=== PATIENT | male | born 1945 | race Caucasian/White ===

== ENCOUNTER → 2023-05-02 | Outpatient (CLI) | payer MEDICARE, BC ==
[~2023-05-02] MED LIST: ASPI325T6 PO; ASPIRIN 81M81 MG/TA2 PO; CINNAMON500 MG PO; COLACE 100100 MG/CAP PO; FOLIC ACID 40400 MCG PO; GLUCOPHAGE500 MG/TAB PO; GOOD NEIGHBOR500 M6; HCTZ 25MG TAB25 MG PO; IRON325 M1 PO; LOTREL 5/20 CAP1 CAP PO; LOVENOX 4040 MG/0.4 SQ; MOBIC15 MG PO; NORCO 325 MG-7.1 TAB PO; OSTEO-BI-FLEX 21 TAB PO; PRILOSEC 20MG20 MG PO; VALIUM 5MG T5 MG/TAB PO; VITAMIN C500 MG PO; ZOCOR 80MG80 MG PO; ZYRTEC 10MG10 MG PO; [UNRECOGNIZED DRUG - OTHER]
== END ==
LOC: COL.RAD 11:10
DX: M47.22 Other spondylosis with radiculopathy, cervical region (principal); M43.12 Spondylolisthesis, cervical region

== ENCOUNTER → 2023-05-31 | Outpatient (CLI) | payer MEDICARE, BC | LOC: MHCPAIN 10:32 | DX: M48.02 Spinal stenosis, cervical region (principal); M54.81 Occipital neuralgia | CPT/HCPCS: G0463 ==

== ENCOUNTER → 2023-06-29 | Outpatient (CLI) | payer MEDICARE, BC ==
[~2023-06-29] MED LIST changes: +Iohexol 300 - 10 ML VIAL ONE; +Lidocaine PF 2% (20 MG/ML) 2 ML VIAL ONE
== END ==
LOC: MHCPAIN 10:49
DX: M54.12 Radiculopathy, cervical region (principal)
CPT/HCPCS: J1100; Q9967

== ENCOUNTER 2023-10-03 06:54 | Day surgery (SDC) | payer MEDICARE, BC ==
[~2023-10-03] VITALS: Ht 180.3 cm; Wt 94.1 kg
[~2023-10-03 06:54] MED LIST changes: +HYDROmorphone 1 MG/1 ML SYRINGE [PACU/SDC ONLY] IV PRN; -Iohexol 300 - 10 ML VIAL ONE; +LR 1,000 ML IV SCH; -Lidocaine PF 2% (20 MG/ML) 2 ML VIAL ONE; +Meclizine 25 MG TAB PO SCH; +Meperidine 50 MG/ML 1 ML VIAL IV PRN; +Ondansetron 4 MG/2 ML VIAL IV PRN; +droPERidol 2.5 MG/ML 2 ML VIAL IV PRN; +fentaNYL 50 MCG/ML 1 ML SYRINGE/VIAL [PACU/SDC ONLY] IV PRN; +hydrALAZINE 20 MG/ML 1 ML VIAL IV PRN
[2023-10-03 07:57] VITALS: BP 137/87; PULSE 60; TEMP 97.6
[2023-10-03] MEDS ORDERED: Rocuronium 50 MG/5 ML Multi-Dose VIAL ONE (08:02)
[2023-10-03] MEDS ORDERED: fentaNYL 50 MCG/ML 2 ML VIAL ONE (08:02)
[2023-10-03] MEDS ORDERED: dexAMETHasone 10 MG/ML VIAL ONE (08:03)
[2023-10-03] MEDS ORDERED: Ondansetron 4 MG/2 ML VIAL ONE (08:03)
[2023-10-03] MEDS ORDERED: NS 10 ML IV ONE (08:03)
[2023-10-03] MEDS ORDERED: MASON NATURAL500 MG PO (08:14)
[2023-10-03] MEDS ORDERED: NEURONTIN300 MG/CAP PO (08:17)
[2023-10-03] MEDS ORDERED: REMERON 15M15 MG/TA1 PO (08:18)
[2023-10-03] MEDS ORDERED: ZOCOR 40MG40 MG PO (08:23)
[2023-10-03] MEDS ORDERED: MYSOLINE 5050 MG/TAB PO (08:24)
[2023-10-03] MEDS ORDERED: VITAMIN D31000 I1 PO (08:24)
[2023-10-03] MEDS ORDERED: STOOL SOFTENER100 M2 PO (08:25)
[2023-10-03] MEDS ORDERED: MELATONIN1 MG PO (08:25)
[2023-10-03] MEDS ORDERED: EYE MULTIVITAM1 EAC1 PO (08:26)
[2023-10-03] MEDS ORDERED: NORCO 325 MG-51 TAB (08:31)
[2023-10-03] MEDS ORDERED: Iohexol 350 - 100 ML VIAL BILE DUCT ONE (09:02)
[2023-10-03] MEDS ORDERED: ePHEDrine 50 MG/ML VIAL ONE (09:10)
[2023-10-03] MEDS ORDERED: hydrALAZINE 20 MG/ML 1 ML VIAL ONE (09:42)
[2023-10-03] MEDS ORDERED: Morphine 4 MG/ML VIAL IV PRN (10:15)
[2023-10-03] MEDS ORDERED: NORCO 325 MG-51 TAB PO (10:15)
[2023-10-03] MEDS ORDERED: Ondansetron 4 MG/2 ML VIAL IV PRN (10:15)
[2023-10-03 11:50] VITALS: BP 146/66; PULSE 56; TEMP 97.5
[2023-10-03 12:05] VITALS: BP 153/64; PULSE 60
[2023-10-03 12:20] VITALS: BP 133/62; PULSE 68
[2023-10-03 12:35] VITALS: BP 123/64; PULSE 72
--- NOTE | 2023-10-03 12:45 | NUR ---
1150 RETURNS TO ROOM 7 PER CART WITH HOB ELEVATED 40 DEGREES. AWAKE, ALERT. RESP UNLABORED. VITAL SIGNS OBTAINED. ABD ROUND, SOFT WITH BANDAID IN PLACE TO 3 INCISION SITES. NO REDNESS OR DRAINAGE OBSERVED. IN ROOM 1152 O2 PER NC REMOVED. PATIENT REPOSITIONS ON CART WITH ASSIST. REPORTS RIGHT NECK SHOULDER DISCOMFORT. DESCRIBES BEING "THE SAME" PREOP. ALTERNATING ICE AND HEAT TO AREEA. DENIES NEED FOR PAIN MED. DENIES CHEST PAIN OR DYSPNEA. CALL LIGHT AT SIDE. 1205 HOB ELEVATED 50 DEGREES. AWAKE, ALERT, CONVERSES WITH 1215 HOB ELEVATED 80 DEGREES. TOLERATES PO WATER AND ICE CREAM WITHOUT NAUSEA. 1225 DISCHARGE INSTRUCTIONS REVIEWED. PATIENT AND VERBALIZE UNDERSTANDING. COPY PROVIDED IN DISCHARGE FOLDER [address] MCGRATH 1235 SITS ON EDGE OF CART. MOVES WELL, INDEPENDENTLY. DRESSES WITH MINIMAL ASSIST FROM
== END 2023-10-03 12:45 | disposition home or self-care (01) ==
LOC: SDCO 06:54
DX: K80.10 Calculus of gallbladder with chronic cholecystitis without obstruction (principal); I44.1 Atrioventricular block, second degree; I45.10 Unspecified right bundle-branch block; I08.1 Rheumatic disorders of both mitral and tricuspid valves; I11.9 Hypertensive heart disease without heart failure; E11.42 Type 2 diabetes mellitus with diabetic polyneuropathy; K21.9 Gastro-esophageal reflux disease without esophagitis; C44.300 Unspecified malignant neoplasm of skin of unspecified part of face
CPT/HCPCS: J0360; J0690; J1100; J1170; J1790; J2405; J2704; J3010; J7120; Q9967

== ENCOUNTER 2023-11-29 11:17 | Inpatient (IN) | payer MEDICARE, BC ==
[2023-11-29] VITALS (10 sets, daily range): BP systolic 129–171; BP diastolic 86–100; PULSE 65–76; TEMP 97.5–98
[~2023-11-29] VITALS: Ht 180.3 cm; Wt 92.7 kg
[~2023-11-29 11:17] MED LIST changes: +EYE MULTIVITAM1 EAC1 PO; -HYDROmorphone 1 MG/1 ML SYRINGE [PACU/SDC ONLY] IV PRN; -LR 1,000 ML IV SCH; +MASON NATURAL500 MG PO; +MELATONIN1 MG PO; +MYSOLINE 5050 MG/TAB PO; -Meclizine 25 MG TAB PO SCH; -Meperidine 50 MG/ML 1 ML VIAL IV PRN; +NEURONTIN300 MG/CAP PO; +NORCO 325 MG-51 TAB; +NORCO 325 MG-51 TAB PO; -Ondansetron 4 MG/2 ML VIAL IV PRN; +REMERON 15M15 MG/TA1 PO; +STOOL SOFTENER100 M2 PO; +VITAMIN D31000 I1 PO; +ZOCOR 40MG40 MG PO; -droPERidol 2.5 MG/ML 2 ML VIAL IV PRN; -fentaNYL 50 MCG/ML 1 ML SYRINGE/VIAL [PACU/SDC ONLY] IV PRN; -hydrALAZINE 20 MG/ML 1 ML VIAL IV PRN
[2023-11-29] MEDS ORDERED: NS 1,000 ML IV ONE (11:45)
[2023-11-29 11:58] LABS: PROTHROMBIN TIME 11.4 SECONDS (9.7-12.8)
[2023-11-29 12:05] LABS: BASO % 0.2 % (0.0-2.0); EOS # 0.1 K/mm3 (0.0-0.7); EOS % 1.2 % (0.0-4.0); GRAN # 5.5 K/mm3 (1.4-6.5); GRAN % 59.4 % (42.2-75.2); LYMPH # 2.6 K/mm3 (1.2-3.4); LYMPH % 28.6 % (20.0-51.0); MEAN CELL VOLUME 92 fl (80.0-100.0); MEAN CORPUSCULAR HGB CONC 35 g/dl (33.0-37.0); MEAN PLATELET VOLUME 9.2 fl (7.4-10.4); MONO % 10.4 % (1.7-9.3); PLATELET COUNT 268 K/mm3 (130-400); RED BLOOD COUNT 5.84 M/mm3 (4.20-5.60); REDCELL DISTRIBUTION WIDTH-CV 12.4 % (11.5-14.5)
[2023-11-29 12:06] LABS: HEMATOCRIT 53.9 % (42.0-52.0); HEMOGLOBIN 18.7 g/dl (13.5-18.0); MEAN CORPUSCULAR HEMOGLOBIN 32 pg (27-31)
[2023-11-29 12:17] LABS: ALBUMIN 4.6 g/dL (3.4-4.8); BILIRUBIN,TOTAL 1.3 mg/dL (0.2-1.2); C-REACTIVE PROTEIN 0.1 mg/dL (0.00-0.50); CALCIUM 10.5 mg/dL (8.4-10.2); CREATININE, serum 0.92 mg/dL (0.72-1.25); POTASSIUM 3.7 mEq/L (3.5-4.5); TOTAL PROTEIN 7.9 g/dl (6.2-8.1)
[2023-11-29] MEDS ORDERED: NERVE RENEW PO (12:25)
[2023-11-29 12:27] LABS: TROPONIN-I 0.011 ng/mL (0.00-0.033)
[2023-11-29] MEDS ORDERED: Docusate Sodium 100 MG CAP PO PRN (14:00)
[2023-11-29] MEDS ORDERED: LR 1,000 ML IV SCH (14:00)
[2023-11-29] MEDS ORDERED: Acetaminophen 325 MG TAB PO PRN (14:00)
[2023-11-29] MEDS ORDERED: Gabapentin 300 MG CAP PO SCH ×2 (14:00→21:00)
[2023-11-29] MEDS ORDERED: Polyethylene Glycol 3350 17 GM PDS PO PRN (14:00)
[2023-11-29] MEDS ORDERED: Ondansetron 4 MG/2 ML VIAL IV PRN (14:00)
[2023-11-29] MEDS ORDERED: ceFAZolin 2 G in Water For Injection,Sterile 20 ML IV SCH (14:15)
[2023-11-29] MEDS ORDERED: NEURONTIN300 MG/CAP PO (14:29)
[2023-11-29] MEDS ORDERED: NS 1,000 ML IV.SOLN. IR SCH (16:20)
[2023-11-29] MEDS ORDERED: Iohexol 350 - 100 ML VIAL IV ONE (16:22)
[2023-11-29] MEDS ORDERED: fentaNYL 50 MCG/ML 2 ML VIAL IV SCH (16:33)
[2023-11-29] MEDS ORDERED: Midazolam 2 MG/2 ML VIAL IV SCH (16:40)
--- NOTE | 2023-11-29 18:14 | NUR ---
Patient resting in bed, getting his dinner. Denies any pain or discomfort. VSS. Report will be given to night RN.
[2023-11-29] MEDS ORDERED: Primidone 50 MG TAB PO SCH (21:00)
[2023-11-29] MEDS ORDERED: Cephalexin 500 MG CAP PO SCH (21:00)
[2023-11-29] MEDS ORDERED: Atorvastatin 20 MG TAB PO SCH (21:00)
[2023-11-29] MEDS ORDERED: Mirtazapine 15 MG TAB PO SCH (21:00)
[2023-11-29] MEDS ORDERED: Famotidine 20 MG TAB PO SCH (21:00)
--- NOTE | 2023-11-29 22:47 | NUR ---
PATIENT RESTING IN BED WITH EYES CLOSED. EASILY ROUSED. ALERT AND ORIENTED X 4. REPORTS PAIN IN LEFT CHEST INCISION SITE AT 4/10. DENIES ANY NAUSEA OR SHORTNESS OF BREATH. CALL LIGHT WITHIN REACH. BED IS LOCKED AND IN LOW POSITION.
[2023-11-30 03:27] VITALS: BP 150/88; PULSE 64; TEMP 97.7
[2023-11-30 04:07] VITALS: BP_SYST 150
[2023-11-30 06:58] LABS: BASO % 0.3 % (0.0-2.0); EOS # 0.1 K/mm3 (0.0-0.7); EOS % 2.1 % (0.0-4.0); GRAN # 4.2 K/mm3 (1.4-6.5); GRAN % 61.1 % (42.2-75.2); HEMATOCRIT 43.7 % (42.0-52.0); LYMPH # 1.7 K/mm3 (1.2-3.4); LYMPH % 25.5 % (20.0-51.0); MEAN CELL VOLUME 91 fl (80.0-100.0); MEAN CORPUSCULAR HEMOGLOBIN 32 pg (27-31); MEAN CORPUSCULAR HGB CONC 35 g/dl (33.0-37.0); MEAN PLATELET VOLUME 9.4 fl (7.4-10.4); MONO # 0.7 K/mm3 (0.1-0.6); MONO % 10.7 % (1.7-9.3); PLATELET COUNT 216 K/mm3 (130-400); RED BLOOD COUNT 4.82 M/mm3 (4.20-5.60); REDCELL DISTRIBUTION WIDTH-CV 12.1 % (11.5-14.5)
[2023-11-30 07:18] LABS: HEMOGLOBIN 15.3 g/dl (13.5-18.0)
[2023-11-30 07:21] LABS: CALCIUM 9.3 mg/dL (8.4-10.2); CREATININE, serum 0.74 mg/dL (0.72-1.25); POTASSIUM 3.8 mEq/L (3.5-4.5)
[2023-11-30 07:49] VITALS: BP 143/82; PULSE 63; TEMP 97.6
[2023-11-30 08:45] VITALS: BP_SYST 143
[2023-11-30] MEDS ORDERED: Gabapentin 300 MG CAP PO SCH (09:00)
[2023-11-30] MEDS ORDERED: Influenza Virus Vaccine, Hi-Dose Triv '24-25 (65 YR+) 0.5 ML SYRINGE IM SCH (09:00)
--- NOTE | 2023-11-30 10:16 | NUR ---
Patient awake, alert and oriented. Denies shortness of breath or nausea, states he has a little pain and tenderness at his incision site - tylenol given. Steady on feet in room. Bed in lowest position with call light within reach.
[2023-11-30] MEDS ORDERED: CEPHALEXIN500 M1 PO (10:36)
--- NOTE | 2023-11-30 10:43 | NUR ---
ticket worker met with pt to discuss discharge planning. He reports that he is going home today. Pt lives with , Cristy [phone] in [place]. He sees Dr. Angelo for PCP needs and obtains medications from [facility] with no difficulties. He has Medicare A/B and BCBS insurance. Pt is independent with [employer] and uses no DME, but has a cane for at night when he is not fully awake. He reports to have a DPOA-HC listing his and daughter, Viktoria at [facility]. No further needs and worked with PT and states it went well. PT/OT pending Discharge Plan: home
[2023-11-30 11:35] VITALS: BP 145/78; PULSE 68; TEMP 98
--- NOTE | 2023-11-30 11:43 | NUR ---
D: Train Dispatcher stopped by room on rounds. A: Pt was resting and content. Pt has no needs right now. P: Train Dispatcher informed pt that if he needed anything from the legal administrative assistant area to let his nurse know. Train Dispatcher will follow up as needed.
== END 2023-11-30 12:45 | disposition home or self-care (01) | DRG 244 ==
LOC: COL.ER 11:17 → MEDICAL 13:46
PROVIDERS: Emergency Medicine; ADMIT Internal Medicine
PROC: 02H63JZ Insertion of Pacemaker Lead into Right Atrium, Percutaneous Approach (ICD-10-PCS; principal; 2023-11-29)
PROC: 02HK3JZ Insertion of Pacemaker Lead into Right Ventricle, Percutaneous Approach (ICD-10-PCS; 2023-11-29)
PROC: 0JH606Z Insertion of Pacemaker, Dual Chamber into Chest Subcutaneous Tissue and Fascia, Open Approach (ICD-10-PCS; 2023-11-29)
DX: I44.1 Atrioventricular block, second degree (principal); G47.00 Insomnia, unspecified; I10 Essential (primary) hypertension; K21.9 Gastro-esophageal reflux disease without esophagitis; E78.5 Hyperlipidemia, unspecified; Z20.822 Contact with and (suspected) exposure to COVID-19; I45.10 Unspecified right bundle-branch block; E11.42 Type 2 diabetes mellitus with diabetic polyneuropathy; I34.0 Nonrheumatic mitral (valve) insufficiency; M50.30 Other cervical disc degeneration, unspecified cervical region; M47.817 Spondylosis without myelopathy or radiculopathy, lumbosacral region; Z90.49 Acquired absence of other specified parts of digestive tract; Z79.899 Other long term (current) drug therapy; Z79.82 Long term (current) use of aspirin; Z79.891 Long term (current) use of opiate analgesic; Z85.828 Personal history of other malignant neoplasm of skin
CPT/HCPCS: C1785; C1894; C1898; J0665-JZ; J0688; J0690; J2250; J3010; J7030; Q9967